=== PATIENT | female | born 1980 | race Caucasian/White ===

== ENCOUNTER 2024-06-06 13:43 | Emergency (ER) | payer MEDICAID ==
[~2024-06-06] VITALS: Ht 162.6 cm; Wt 108.0 kg
[2024-06-06 14:23] VITALS: O2SAT 98
[2024-06-06] MEDS: IBUPROFEN 800MG TABLET PO ONE (15:45)
[2024-06-06] MEDS ORDERED: IBUP-2029 MT (16:25)
[2024-06-06 17:38] VITALS: BP 140/90; PULSE 95; RESP 12; TEMP 37.2; O2SAT 98
== END 2024-06-06 18:14 | disposition home or self-care (01) ==
LOC: ER 13:43
DX: S40.021A Contusion of right upper arm, initial encounter (principal); Z90.710 Acquired absence of both cervix and uterus; Z91.040 Latex allergy status; X58.XXXA Exposure to other specified factors, initial encounter; Y93.89 Activity, other specified; Y92.481 Parking lot as the place of occurrence of the external cause; Y99.8 Other external cause status
CPT/HCPCS: 73090; 73110; 99284